=== PATIENT | female | born 1945 | race Caucasian/White ===

== ENCOUNTER → 2018-07-08 | Outpatient (CLI) | payer OTHER ==
--- NOTE | 2018-07-08 14:11 | KCIC ---
Bone densitometry 07/08/2018 12:30 PM Indication: Ovarian failure. Osteopenia. Postmenopausal exam.. Comparison Study: None available Discussion: Bone Densitometry was performed with dual photon absorption of the lumbar spine and proximal left femur Lumbar Spine: Bone average density is 0.864 g/cm2 for L1-L4. T-Score is -1.7. Proximal left femur: Bone average density is 0.652g/cm2. T-Score is -2.4. IMPRESSION: Osteopenia, most prominent in the proximal left femur. Bone mineral density measurement here is just above the osteoporotic range. Fracture risk is considered high. Post therapeutic surveillance including bone mineral density measurement recommended. Note: Definitions established by the World Health Organization: Normal: T-score is -1.0 or above. Osteopenia: T-score is between -1.0 and -2.5. Osteoporosis: T-score is -2.5 or below. Electronically signed by: Miko Zavala MD (07/08/2018 2:07 PM) [id number]
== END | disposition home or self-care (01) ==
LOC: KCIC DEXA 12:08
PROVIDERS: ATTEND Internal Medicine
DX: E28.39 Other primary ovarian failure (principal); M85.852 Other specified disorders of bone density and structure, left thigh; Z78.0 Asymptomatic menopausal state
CPT/HCPCS: 77080

== ENCOUNTER → 2021-01-20 | Day surgery (SDC) | payer MEDICARE ==
[~2021-01-20] VITALS: Ht 162.6 cm; Wt 45.0 kg
[~2021-01-20] MED LIST: IV RINGERS,LACTATED 1000ML 1,000 ML IV ONE; LIDOCAINE 2% PF 5 ML VIAL. ONE; MULT-445 PO; PROPOFOL 10 MG/ML (20ML) VIAL. IV ONE
[2021-01-20 07:48] VITALS: BP 147/65
[2021-01-20 09:47] VITALS: BP 110/56
--- NOTE | 2021-01-21 01:46 | CONS ---
DATE OF CONSULTATION: 01/20/2021 GASTROINTESTINAL CONSULTATION REASON FOR CONSULTATION: History of colon polyp. HISTORY OF PRESENT ILLNESS: A 75-year-old female who has past medical history significant for an appendectomy and cataract surgery, history of colonic polyps, is seen for interval colonoscopy. Bowel habits are regular without diarrhea or constipation. There has been no melena and/or hematochezia. Weight and appetite are stable. She is otherwise without additional complaints. PAST MEDICAL HISTORY: Status post appendectomy, cataract surgeries bilaterally. ALLERGIES: None. MEDICATIONS: None. SOCIAL HISTORY: Social drinker, nonsmoker. FAMILY HISTORY: Significant for diabetes in multiple family members. REVIEW OF SYSTEMS: Per records. PHYSICAL EXAMINATION: GENERAL: Reveals a well-nourished, well-developed female who is alert, cooperative, no acute distress. VITAL SIGNS: Temp 97.9, pulse 89, respiratory rate 18. LUNGS: Clear. CARDIOVASCULAR: S1, S2, without S3, S4 or appreciable murmur. ABDOMEN: Revealed a soft abdomen, normal bowel sounds, without appreciable hepatosplenomegaly with right lower quadrant appendectomy incision. EXTREMITIES: Reveals no cyanosis, clubbing or edema. IMPRESSION AND PLAN: History of colon polyps. Surveillance exam is recommended at this time. Risks and benefits of procedure including risk of and perforation with operation were discussed. The patient is willing to proceed at this time. I would like to thank Dr. Mcgovern for allowing us to consult and participate in the patient's care. ALLIE/KULWINDER/DUANE DR: Catina TID: [id number] CC: EVARISTO MCGOVERN MD
== END | disposition home or self-care (01) ==
LOC: ENDOS 07:23
PROVIDERS: ATTEND Internal Medicine Gastroenterology
DX: Z12.11 Encounter for screening for malignant neoplasm of colon (principal); K64.0 First degree hemorrhoids; K57.30 Diverticulosis of large intestine without perforation or abscess without bleeding; K63.89 Other specified diseases of intestine; E78.00 Pure hypercholesterolemia, unspecified; Z86.010 Personal history of colon polyps; Z85.038 Personal history of other malignant neoplasm of large intestine; Z79.899 Other long term (current) drug therapy; Z98.890 Other specified postprocedural states; Z88.8 Allergy status to other drugs, medicaments and biological substances
CPT/HCPCS: G0105; J2704; 45378; G0121